=== PATIENT | female | born 1945 | race Caucasian/White ===

== ENCOUNTER → 2018-08-11 | Outpatient (CLI) | payer MEDICARE, OTHER ==
[~2018-08-11] MED LIST: ASPI-1441 PO; BYETTA SQ; CALC500T6 PO; EXEN10PE4 SQ; GLIM4TAB50 PO; LEV125 PO; LISI20TA29 PO; MAGN250T34 PO; MET500 PO; MULT-865 PO
--- NOTE | 2018-08-20 15:14 | RADIOLOGY IMAGING REPORT ---
FACILITY: [facility] PATIENT NAME: PENNY BANERJEE : [id number] MR: [id number] V: [id number] EXAM DATE: [id number] ORDERING PHYSICIAN: OLIVER ABREU TECHNOLOGIST: Adina Malone PROCEDURE:BILATERAL DIGITAL SCREENING MAMMOGRAM WITH CAD ASSISTED INTERPRETATION & 3D TOMOSYNTHESIS COMPARISON:[facility] INDICATIONS:screening FINDINGS: Scattered fibroglandular tissue is present in both breasts. A few benign appearing calcifications are scattered bilaterally. DIAGNOSTIC CATEGORY 1--NEGATIVE. RECOMMENDATIONS: ROUTINE MAMMOGRAM AND CLINICAL EVALUATION IN 1 YR. IMPRESSION: BIRADS 1: Negative. Dictated by: Darryl Jeff M.D. on 08/12/2018 at 9:18 Transcribed by: LONNY on 08/12/2018 at 9:33 Approved by: Eduin Elmore on 08/20/2018 at 15:13 [facility]
== END ==
LOC: MAMO 00:57
PROVIDERS: ATTEND Family Medicine
DX: Z12.31 Encounter for screening mammogram for malignant neoplasm of breast (principal)
CPT/HCPCS: 77063; 77067